=== PATIENT | female | born 1980 | race Caucasian/White ===

== ENCOUNTER 2018-11-29 11:58 | Emergency (ER) | payer SELFPAY ==
--- NOTE | 2018-11-29 12:32 | ER Document Report ---
HPI - HPI Time Seen by Provider: 11/29/18 12:23 Onset: Last week Onset/Duration: Persistent Quality of pain: Achy Severity: Mild Pain Level: 2 Context: This 38-year-old female presents emergency department with complaints of right ankle pain. Reports she fell down a couple brick steps last week. She reports ankle still hurts. She reports tingling in her toes when she walks. Denies other symptoms such as fever vomiting. Denies past medical history of injury to the ankle. Associated Symptoms: None Exacerbated by: Walking Relieved by: Denies Similar symptoms previously: No Recently seen / treated by doctor: No - REPRODUCTIVE Reproductive: DENIES: : Past Medical History - General Information source: Patient Last Menstrual Period: october - Social History Smoking Status: Current Every Day Smoker Cigarette use (# per day): Yes Frequency of alcohol use: None Drug Abuse: None Lives with: Family Family History: None Patient has suicidal ideation: No Patient has homicidal ideation: No - Medical History Medical History: Negative Surgical Hx: Negative Vertical Provider Document - CONSTITUTIONAL Agree With Documented VS: Yes Exam Limitations: No Limitations General Appearance: WD/WN, No Apparent Distress - winces with palpation to ankle - HEENT HEENT: Atraumatic, Normocephalic - NECK Neck: Supple - RESPIRATORY Respiratory: No Respiratory Distress - CARDIOVASCULAR Cardiovascular: Regular Rate - MUSCULOSKELETAL/EXTREMETIES Musculoskeletal/Extremeties: MAEW, FROM, Tender - Patient reports right ankle tender to palpate. No obvious deformity no swelling no erythema good pedal pulse good cap refill - NEURO Level of Consciousness: Awake, Alert, Appropriate Motor/Sensory: No Motor Deficit - DERM Integumentary: Warm, Dry Course - Re-evaluation Re-evalutation: 11/29/18 12:31 38-year-old female with complaints of right ankle pain for the past week with no obvious deformity no swelling no erythema. Patient has good pedal pulse and good cap refill. X-ray ordered. 11/29/18 13:02 X-ray negative. Patient was instructed on Motrin. Instructed to wear good supporting shoes rest ice and elevate to minimize pain. She verbalized un derstanding. Ankle X-Ray 11/29/18 12:27 IMPRESSION: NEGATIVE STUDY OF THE RIGHT ANKLE. NO RADIOGRAPHIC EVIDENCE OF ACUTE INJURY. - Vital Signs Vital signs: Temp Pulse Resp BP Pulse Ox 98.7 F 72 18 147/92 H 96 11/29/18 12:02 11/29/18 12:02 11/29/18 12:02 11/29/18 12:02 11/29/18 12:02 Discharge - Discharge Clinical Impression: Right ankle pain Qualifiers: Chronicity: acute Qualified Code(s): M25.571 - Pain in right ankle and joints of right foot Condition: Stable Disposition: HOME, SELF-CARE Instructions: Use of Kxel-Veg-Cfjjihc Ibuprofen ([facility]), Ice & Elevation ([facility]) Additional Instructions: *You have been evaluated for an ankle injury Your ankle x-ray was negative for a fracture. *Rest/Ice/Elevate your ankle *Wear good supporting shoes to protect your foot and ankle *Follow up with orthopedics in the next week for continued pain *Take ibuprofen as indicated for pain *Return to ED for worsening condition, changes, needs Monitor your blood pressure. Your blood pressure was elevated today. This may be because you were anxious, in pain or because you need medication. It is important to follow up with your primary care provider for full evaluation. Forms: Elevated Blood Pressure Referrals: RGOER MOSER MD [Primary Care Provider] - Follow up in 1 week
--- NOTE | 2018-11-29 12:49 | RADIOLOGY REPORT (SQ) ---
EXAM DESCRIPTION: ANKLE RIGHT COMPLETE COMPLETED DATE/TIME: 11/29/2018 12:40 pm REASON FOR STUDY: ankle pain COMPARISON: None. NUMBER OF VIEWS: Three views. TECHNIQUE: AP, lateral, and oblique radiographic images acquired of the right ankle. LIMITATIONS: None. FINDINGS: MINERALIZATION: Normal. BONES: No acute fracture or dislocation. No worrisome bone lesions. JOINTS: No effusions. SOFT TISSUES: No soft tissue swelling. No foreign body. OTHER: No other significant finding. IMPRESSION: NEGATIVE STUDY OF THE RIGHT ANKLE. NO RADIOGRAPHIC EVIDENCE OF ACUTE INJURY. TECHNICAL DOCUMENTATION: JOB ID: [id number] [employer]- All Rights Reserved Reading location - IP/workstation name: [email or web address]
[2018-11-29 13:34] VITALS: BP 105/68
== END 2018-11-29 13:44 | disposition home or self-care (01) ==
LOC: ER 11:58
DX: M25.571 Pain in right ankle and joints of right foot (principal); F17.210 Nicotine dependence, cigarettes, uncomplicated
CPT/HCPCS: 99283

== ENCOUNTER → 2019-01-02 | Outpatient (CLI) | payer OTHER ==
[2019-01-02 08:33] LABS: ABSOLUTE BASOPHILS # (AUTO) 0.1 10^3/uL (0.0-0.2); ABSOLUTE EOSINOPHILS # (AUTO) 0.3 10^3/uL (0.0-0.6); ABSOLUTE LYMPHOCYTES (AUTO) 3.4 10^3/uL (0.5-4.7); ABSOLUTE MONOCYTES (AUTO) 0.8 10^3/uL (0.1-1.4); ABSOLUTE NEUT (AUTO) 2.4 10^3/uL (1.7-8.2); EOSINOPHILS % (AUTO) 3.8 % (0-6); HEMATOCRIT 36.4 % (36.0-47.0); HEMOGLOBIN 11.9 g/dL (12.0-15.5); LYMPHOCYTES % (AUTO) 49.3 % (13-45); MEAN CORPUSCULAR HEMOGLOBIN 25.9 pg (27.0-33.4); MEAN CORPUSCULAR HGB CONC 32.8 g/dL (32.0-36.0); MEAN CORPUSCULAR VOLUME 79 fl (80-97); MONOCYTES % (AUTO) 11.1 % (3-13); PLATELET COUNT 238 10^3/uL (150-450); RED CELL DISTRIBUTION WIDTH 15.6 % (11.5-14.0); SEGMENTED NEUTROPHILS % (AUTO) 34.8 % (42-78); TOTAL CELLS COUNTED % (AUTO) 100 %; WHITE BLOOD COUNT 6.9 10^3/uL (4.0-10.5)
[2019-01-02 08:47] LABS: APPEARANCE,URINE SLIGHTLY-CLOUDY; BILIRUBIN,URINE NEGATIVE (NEGATIVE); COLOR,URINE YELLOW; GLUCOSE, URINE NEGATIVE (NEGATIVE); KETONES,URINE NEGATIVE (NEGATIVE); LEUKOCYTE ESTERASE,URINE NEGATIVE (NEGATIVE); NITRITE,URINE NEGATIVE (NEGATIVE); PROTEIN,URINE NEGATIVE (NEGATIVE); URINE SPECIFIC GRAVITY 1.024; UROBILINOGEN,URINE NEGATIVE mg/dL (<2.0)
[2019-01-02 08:56] LABS: ALBUMIN 3.8 g/dL (3.5-5.0); ALKALINE PHOSPHATASE 80 U/L (38-126); ANION GAP 6 (5-19); ASPARTATE AMINO TRANSFERASE 21 U/L (14-36); BILIRUBIN,DIRECT 0.1 mg/dL (0.0-0.4); BILIRUBIN,TOTAL 0.2 mg/dL (0.2-1.3); BLOOD UREA NITROGEN 12 mg/dL (7-20); CALCIUM 9.1 mg/dL (8.4-10.2); CARBON DIOXIDE 25 mmol/L (22-30); CHLORIDE 106 mmol/L (98-107); CHOLESTEROL 241.24 mg/dL (0-200); GLUCOSE 85 mg/dL (75-110); POTASSIUM 4.2 mmol/L (3.6-5.0); TRIGLYCERIDES 102 mg/dL (<150)
[2019-01-02 09:07] LABS: DIRECT LDL 163 mg/dL (<100)
== END ==
LOC: CCC 07:53
DX: R31.0 Gross hematuria (principal); Z83.71 Family history of colonic polyps
CPT/HCPCS: 36415; 80053; 80061; 81001; 83036; 84443; 85025

== ENCOUNTER 2019-01-27 23:02 | Emergency (ER) | payer OTHER ==
--- NOTE | 2019-01-27 23:25 | ER Document Report ---
ED Medical Screen (RME) - General Chief Complaint: Lower Abdominal Pain Stated Complaint: RIGHT OVARIAN PAIN Time Seen by Provider: 01/27/19 23:21 Primary Care Provider: YANNI ARCE [Primary Care Provider] - Follow up as needed Mode of Arrival: Ambulatory Information source: Patient Notes: Patient is an otherwise healthy 38-year-old female presenting to the emergency department chief complaint of right lower quadrant abdominal pain. Patient reports pain has been ongoing for several months worsening over the last few days. She denies any nausea, vomiting, diarrhea or fever. Denies any dysuria or urinary frequency. Patient does report a history of ovarian cysts, states this feels very similar. Exam: Tenderness to palpation of the right lower quadrant without guarding or rebound. I have greeted and performed a rapid initial assessment of this patient. A comprehensive ED assessment and evaluation of the patient, analysis of test results and completion of the medical decision making process will be conducted by additional ED providers. I have specifically instructed the patient or family members with the patient to immediately return to any nursing staff should anything change in the patient's condition or with their chief complaint. This medical record was dictated with voice recognizing software. There may be grammatical, syntax errors that are unintended. TRAVEL OUTSIDE OF THE [place] IN LAST 30 DAYS: No - Related Data Allergies/Adverse Reactions: No Known Allergies Allergy (Unverified 11/29/18 12:00) Past Medical History - Social History Chew tobacco use (# tins/day): No Frequency of alcohol use: None Drug Abuse: None Renal/ Medical History: Denies: Hx Peritoneal Dialysis Physical Exam - Vital signs Vitals: Temp Pulse Resp BP Pulse Ox 98.7 F 85 21 H 145/93 H 98 01/27/19 23:07 01/27/19 23:07 01/27/19 23:07 01/27/19 23:07 01/27/19 23:07 Course - Vital Signs Vital signs: Temp Pulse Resp BP Pulse Ox 98.7 F 85 21 H 145/93 H 98 01/27/19 23:07 01/27/19 23:07 01/27/19 23:07 01/27/19 23:07 01/27/19 23:07 Doctor's Discharge - Discharge Referrals: YANNI ARCE [Primary Care Provider] - Follow up as needed
[2019-01-28 00:07] LABS: ABSOLUTE BASOPHILS # (AUTO) 0.1 10^3/uL (0.0-0.2); ABSOLUTE EOSINOPHILS # (AUTO) 0.1 10^3/uL (0.0-0.6); ABSOLUTE LYMPHOCYTES (AUTO) 2.9 10^3/uL (0.5-4.7); ABSOLUTE MONOCYTES (AUTO) 0.8 10^3/uL (0.1-1.4); ABSOLUTE NEUT (AUTO) 6.2 10^3/uL (1.7-8.2); BASOPHILS % (AUTO) 0.8 % (0-2); EOSINOPHILS % (AUTO) 1.1 % (0-6); HEMATOCRIT 36.9 % (36.0-47.0); HEMOGLOBIN 12.5 g/dL (12.0-15.5); MEAN CORPUSCULAR HEMOGLOBIN 27.1 pg (27.0-33.4); MEAN CORPUSCULAR HGB CONC 33.9 g/dL (32.0-36.0); MEAN CORPUSCULAR VOLUME 80 fl (80-97); MONOCYTES % (AUTO) 7.8 % (3-13); PLATELET COUNT 291 10^3/uL (150-450); RED BLOOD COUNT 4.62 10^6/uL (3.72-5.28); SEGMENTED NEUTROPHILS % (AUTO) 61.3 % (42-78); TOTAL CELLS COUNTED % (AUTO) 100 %; WHITE BLOOD COUNT 10.2 10^3/uL (4.0-10.5)
[2019-01-28 00:12] LABS: ALBUMIN 4.1 g/dL (3.5-5.0); ALKALINE PHOSPHATASE 88 U/L (38-126); ANION GAP 9 (5-19); ASPARTATE AMINO TRANSFERASE 21 U/L (14-36); BILIRUBIN,DIRECT 0.2 mg/dL (0.0-0.4); BILIRUBIN,TOTAL 0.4 mg/dL (0.2-1.3); BLOOD UREA NITROGEN 18 mg/dL (7-20); CALCIUM 9.5 mg/dL (8.4-10.2); CARBON DIOXIDE 24 mmol/L (22-30); CHLORIDE 106 mmol/L (98-107); GLUCOSE 129 mg/dL (75-110); POTASSIUM 3.5 mmol/L (3.6-5.0); TOTAL PROTEIN 7.4 g/dL (6.3-8.2)
--- NOTE | 2019-01-28 01:09 | RADIOLOGY REPORT (SQ) ---
US PELVIS EXAM DATE: 01/27/2019 11:26 PM SANITARY INSPECTOR HISTORY: Right lower quadrant pain. COMPARISON: None. TECHNIQUE: Grayscale, color Doppler, and spectral Doppler ultrasound images of the pelvis were obtained. FINDINGS: The uterus is anteverted and measures 9.8 x 5.4 x 5.9 cm. The endometrium is 1.2 cm in thickness. The cervix is 3 cm in length. Both ovaries are normal in size and contain normal follicles, with the right ovary measuring 3.4 cm, and the left ovary measuring 3.0 cm. Normal color Doppler blood flow is seen in both ovaries. IMPRESSION: Normal pelvic ultrasound.
--- NOTE | 2019-01-28 02:30 | ER Document Report ---
ED General - General Chief Complaint: Lower Abdominal Pain Stated Complaint: RIGHT OVARIAN PAIN Time Seen by Provider: 01/27/19 23:21 Primary Care Provider: [facility] [Primary Care Provider] - Follow up as needed DESIRAE LOAIZA MD [NO LOCAL MD] - Follow up as needed Mode of Arrival: Ambulatory Notes: 38 year old female presents to the ED complaining of right-sided pelvic and low er abdominal pain that is been going on since September but was slightly increased today compared to usual. She thinks it may have been because she worked a 12- hour day but she is uncertain. Patient also states that she has had blood in her urine since September that she can see looking in the toilet since September. Denies any vaginal bleeding or vaginal discharge. Denies dyspareunia. Denies dysuria or frequency. States that she was previously diagnosed with urinary tract infection and had to be hospitalized [place] another [place]. Recently moved here from [place]. Has not seen a urologist for hematuria. TRAVEL OUTSIDE OF THE [place] IN LAST 30 DAYS: No - Related Data Allergies/Adverse Reactions: No Known Allergies Allergy (Unverified 11/29/18 12:00) Past Medical History - General Information source: Patient - Social History Smoking Status: Current Every Day Smoker Chew tobacco use (# tins/day): No Frequency of alcohol use: None Drug Abuse: None Family History: None Patient has suicidal ideation: No Patient has homicidal ideation: No Renal/ Medical History: Denies: Hx Peritoneal Dialysis Review of Systems - Review of Systems Constitutional: No symptoms reported Gastrointestinal: See HPI Genitourinary: See HPI Female Genitourinary: See HPI -: Yes All other systems reviewed and negative Physical Exam - Vital signs Vitals: Temp Pulse Resp BP Pulse Ox 98.7 F 85 21 H 145/93 H 98 01/27/19 23:07 01/27/19 23:07 01/27/19 23:07 01/27/19 23:07 01/27/19 23:07 Interpretation: Hypertensive - Notes Notes: GENERAL: Alert, interacts well. No acute distress. HEAD: Normocephalic, atraumatic EYES: Pupils equal, round and reactive to light, extraocular movements intact. ENT: Oral mucosa moist, tongue midline. NECK: Full range of motion, supple, trachea midline. LUNGS: Clear to auscultation bilaterally, no wheezes, rales or rhonchi, no respiratory distress. HEART: Regular rate and rhythm, no murmurs, gallops, rubs. ABDOMEN: Soft, minimal right lower quadrant tenderness to palpation, no guarding, no rigidity, no rebounding, nondistended, bowel sounds present in all 4 quadrants. EXTREMITIES: Moves all 4 extremities spontaneously, no edema. No cyanosis. NEUROLOGICAL: Alert and oriented x3, normal speech. PSYCH: Normal mood, normal affect. SKIN: Warm, Dry, normal turgor, no rashes or lesions noted. Long false nails that are filed to a point. Course - Re-evaluation Re-evalutation: 01/28/19 02:30 CBC unremarkable, CMP unremarkable transvaginal ultrasound unremarkable, no signs of free fluid or ovarian cyst. No evidence of torsion. Given that this pain is been going on since August and her white blood cell count and temperature normal it is highly unlikely that this is appendicitis, patient also has minimal right lower quadrant tenderness palpation. I am awaiting her urinalysis. 01/28/19 02:56 Urinalysis shows small blood, 8 RBCs, it was slightly cloudy but not red in appearance, test is negative. Patient will follow-up as an outpatient to further investigate why she continues to have hematuria. Discharged home. - Vital Signs Vital signs: Temp Pulse Resp BP Pulse Ox 98.7 F 85 21 H 145/93 H 98 01/27/19 23:07 01/27/19 23:07 01/27/19 23:07 01/27/19 23:07 01/27/19 23:07 - Laboratory Result Diagrams: 01/27/19 23:40 01/27/19 23:40 Laboratory results interpreted by me: 01/27/19 01/27/19 01/28/19 23:40 23:40 02:31 RDW 16.0 H Potassium 3.5 L Glucose 129 H Urine Blood SMALL H Urine Urobilinogen 2.0 H Discharge - Discharge Clinical Impression: Abdominal pain, chronic, right lower quadrant Condition: Stable Disposition: HOME, SELF-CARE Additional Instructions: Today we did not find any cyst on your ovaries. It is possible that you had a cyst that ruptured and that was causing this pain. I am concerned that you have been having fairly constant lower abdominal pain since August. It is important that she continue to follow-up with your primary care physician and possibly a certified nurse practitioner or technical account executive as an outpatient. I am also concerned that you tell me that you have been able to see blood in your urine on an almost daily basis since September. It is very important that you follow-up with urologist as an outpatient for this. I have included Dr. Loaiza's contact information so you can try and arrange a follow-up appointment with him or somebody from his office. Your urinalysis today showed 8 red blood cells. I am surprised you are able to see blood in your urine as we had to use a microscope to see it. Your urine was not red today. Please return for pain when you urinate, vaginal pain, vaginal discharge, fevers, worsening abdominal pain or any new or concerning symptoms. Referrals: [facility] [Primary Care Provider] - Follow up as needed DESIRAE LOAIZA MD [NO LOCAL MD] - Follow up as needed
[2019-01-28 02:46] LABS: APPEARANCE,URINE SLIGHTLY-CLOUDY; BILIRUBIN,URINE NEGATIVE (NEGATIVE); COLOR,URINE YELLOW; GLUCOSE, URINE NEGATIVE (NEGATIVE); KETONES,URINE NEGATIVE (NEGATIVE); PROTEIN,URINE NEGATIVE (NEGATIVE)
[2019-01-28 03:09] VITALS: BP 142/78
== END 2019-01-28 03:06 | disposition home or self-care (01) ==
LOC: ER 23:02
DX: R10.31 Right lower quadrant pain (principal); G89.29 Other chronic pain; R10.2 Pelvic and perineal pain; R31.9 Hematuria, unspecified; R10.813 Right lower quadrant abdominal tenderness; F17.200 Nicotine dependence, unspecified, uncomplicated; Z87.440 Personal history of urinary (tract) infections
CPT/HCPCS: 36415; 76830; 80053; 81001; 81025; 85025; 93976

== ENCOUNTER → 2019-02-06 | Outpatient (CLI) | payer OTHER ==
[2019-02-06 10:06] LABS: ABSOLUTE RETICS # 0.074 10^6/uL (0.028-0.122); RETICULOCYTE COUNT (AUTO) 1.59 % (0.66-2.85)
[2019-02-06 10:25] LABS: IRON(TIBC) 184.3 ug/dL (37-170)
[2019-02-07 16:36] LABS: HGB A2 1.8 % (1.8-3.2); HGB SOLUBILITY RESULT Negative (Negative)
== END ==
LOC: CCC 09:00
DX: D50.9 Iron deficiency anemia, unspecified (principal)
CPT/HCPCS: 36415; 82728; 83020; 83540; 83550; 85045

== ENCOUNTER 2019-05-07 16:26 | Emergency (ER) | payer OTHER ==
[2019-05-07] MEDS ORDERED: METOCLOPRAMIDE HCL INJ/PF 10 MG/2 ML SDV IV ONE (18:12)
[2019-05-07] MEDS ORDERED: KETOROLAC TROMETHAMINE INJ/PF 30 MG/1 ML SDV IV ONE (18:12)
[2019-05-07] MEDS ORDERED: DIPHENHYDRAMINE HCL 50 MG/ML VIAL IV ONE (18:12)
--- NOTE | 2019-05-07 18:16 | ER Document Report ---
ED Medical Screen (RME) - General Chief Complaint: Chest Congestion Stated Complaint: MUSCLE PAIN,HEADACHE,RIB AREA PAIN Time Seen by Provider: 05/07/19 18:04 Primary Care Provider: YANNI ARCE [Primary Care Provider] - Follow up as needed Notes: Patient is a 38-year-old female who presents emergency department with a chief complaint of headache and body aches. Patient reports she used to get headaches frequently but was never diagnosed with migraines. Patient reports that she is currently having a generalized headache. Patient reports taking Tylenol and ibuprofen without much relief. States that headaches been present for about 1 week as well as the muscle pain. Patient reports 3 days ago developing right lung pain and right chest wall pain. Patient denies cough. Patient also complains of right groin pain. Patient also reports rectal pain that started about 1 week ago as well. Patient denies rectal bleeding or blood in stool. TRAVEL OUTSIDE OF THE [place] IN LAST 30 DAYS: No - Related Data Allergies/Adverse Reactions: No Known Allergies Allergy (Verified 05/07/19 18:05) Home Medications: denies Past Medical History - Social History Chew tobacco use (# tins/day): No Frequency of alcohol use: None Drug Abuse: None Renal/ Medical History: Denies: Hx Peritoneal Dialysis Physical Exam - Vital signs Vitals: Temp Pulse Resp BP Pulse Ox 98.8 F 78 16 122/84 98 05/07/19 16:37 05/07/19 16:37 05/07/19 16:37 05/07/19 16:37 05/07/19 16:37 - Respiratory Respiratory status: No respiratory distress Chest status: Nontender Breath sounds: Normal Chest palpation: Normal Course - Re-evaluation Re-evalutation: 05/07/19 18:15 I have greeted and performed a rapid initial assessment of this patient. A comprehensive ED assessment and evaluation of the patient, analysis of test results and completion of the medical decision making process will be conducted by additional ED providers. - Vital Signs Vital signs: Temp Pulse Resp BP Pulse Ox 98.8 F 78 16 122/84 98 05/07/19 16:37 05/07/19 16:37 05/07/19 16:37 05/07/19 16:37 05/07/19 16:37 Doctor's Discharge - Discharge Referrals: YANNI ARCE [Primary Care Provider] - Follow up as needed
--- NOTE | 2019-05-07 18:43 | RADIOLOGY REPORT (SQ) ---
EXAM DESCRIPTION: CHEST 2 VIEWS COMPLETED DATE/TIME: 05/07/2019 6:30 pm REASON FOR STUDY: "RIGHT LUNG PAIN" COMPARISON: None. EXAM PARAMETERS: NUMBER OF VIEWS: Two views. TECHNIQUE: PA and lateral views of the chest were obtained.. RADIATION DOSE: NA LIMITATIONS: none FINDINGS: LUNGS AND PLEURA: No consolidation, pleural effusion or pneumothorax. MEDIASTINUM AND HILAR STRUCTURES: No mediastinal or hilar contour abnormality. HEART AND VASCULAR STRUCTURES: The cardiac silhouette and pulmonary vasculature are within normal martin its. BONES: No acute findings. HARDWARE: None in the chest. OTHER: No other finding. IMPRESSION: No acute cardiopulmonary process. TECHNICAL DOCUMENTATION: JOB ID: [id number] 2010 [employer]- All Rights Reserved Reading location - IP/workstation name: [email or web address]
--- NOTE | 2019-05-07 18:50 | EKG REPORT ---
SEVERITY:- NORMAL ECG - SINUS RHYTHM : Confirmed by: Miriam Marquez 07-May-2019 18:48:34
[2019-05-07 19:16] LABS: ABSOLUTE BASOPHILS # (AUTO) 0.1 10^3/uL (0.0-0.2); ABSOLUTE MONOCYTES (AUTO) 0.7 10^3/uL (0.1-1.4); TOTAL CELLS COUNTED % (AUTO) 100 %
[2019-05-07 19:23] LABS: APPEARANCE,URINE SLIGHTLY-CLOUDY; BILIRUBIN,URINE NEGATIVE (NEGATIVE); COLOR,URINE YELLOW; GLUCOSE, URINE NEGATIVE (NEGATIVE); KETONES,URINE NEGATIVE (NEGATIVE); LEUKOCYTE ESTERASE,URINE NEGATIVE (NEGATIVE); NITRITE,URINE NEGATIVE (NEGATIVE); PROTEIN,URINE NEGATIVE (NEGATIVE); URINE SPECIFIC GRAVITY 1.018; UROBILINOGEN,URINE NEGATIVE mg/dL (<2.0)
[2019-05-07 19:24] LABS: ABSOLUTE EOSINOPHILS # (AUTO) 0.1 10^3/uL (0.0-0.6); ABSOLUTE LYMPHOCYTES (AUTO) 2.7 10^3/uL (0.5-4.7); ABSOLUTE NEUT (AUTO) 5.6 10^3/uL (1.7-8.2); BASOPHILS % (AUTO) 0.8 % (0-2); EOSINOPHILS % (AUTO) 1.3 % (0-6); HEMATOCRIT 38.1 % (36.0-47.0); LYMPHOCYTES % (AUTO) 29.3 % (13-45); MEAN CORPUSCULAR HEMOGLOBIN 27.3 pg (27.0-33.4); MEAN CORPUSCULAR HGB CONC 34.2 g/dL (32.0-36.0); MEAN CORPUSCULAR VOLUME 80 fl (80-97); MONOCYTES % (AUTO) 7.8 % (3-13); PLATELET COUNT 262 10^3/uL (150-450); RED BLOOD COUNT 4.78 10^6/uL (3.72-5.28); RED CELL DISTRIBUTION WIDTH 15.9 % (11.5-14.0); SEGMENTED NEUTROPHILS % (AUTO) 60.8 % (42-78); WHITE BLOOD COUNT 9.2 10^3/uL (4.0-10.5)
[2019-05-07 19:37] LABS: ALBUMIN 4.7 g/dL (3.5-5.0); ALKALINE PHOSPHATASE 84 U/L (38-126); ANION GAP 9 (5-19); ASPARTATE AMINO TRANSFERASE 29 U/L (14-36); BILIRUBIN,DIRECT 0.2 mg/dL (0.0-0.4); BILIRUBIN,TOTAL 0.4 mg/dL (0.2-1.3); BLOOD UREA NITROGEN 13 mg/dL (7-20); CALCIUM 9.6 mg/dL (8.4-10.2); CARBON DIOXIDE 26 mmol/L (22-30); CHLORIDE 104 mmol/L (98-107); GLUCOSE 83 mg/dL (75-110); POTASSIUM 4.2 mmol/L (3.6-5.0); TOTAL PROTEIN 8.3 g/dL (6.3-8.2)
[2019-05-07 19:40] LABS: A TYPE INFLUENZA AG NEGATIVE (NEGATIVE)
[2019-05-07 19:41] LABS: B INFLUENZA AG NEGATIVE (NEGATIVE)
[2019-05-07] MEDS ORDERED: IBUPROFEN 800 MG TABLET PO ONE (20:25)
--- NOTE | 2019-05-07 20:49 | ER Document Report ---
ED General - General Chief Complaint: Chest Congestion Stated Complaint: MUSCLE PAIN,HEADACHE,RIB AREA PAIN Time Seen by Provider: 05/07/19 18:04 Primary Care Provider: [facility] [Primary Care Provider] - Follow up as needed TRAVEL OUTSIDE OF THE [place] IN LAST 30 DAYS: No - HPI Onset: Other - 3 days Quality of pain: Achy Severity: Moderate Context: 38 year old female arrives with feeling bad for about 3 days. Family members treated for + influenza recently. She has had a nonproductive cough and myalgias rather diffusely. Unsure of fever. No chronic health problems. Current everyday smoker but has felt too sick to smoke recently. Trying over the counter tylenol cold and theraflu with out relief. Unable to work today. - Related Data Allergies/Adverse Reactions: No Known Allergies Allergy (Verified 05/07/19 18:05) Home Medications: denies Past Medical History - Social History Smoking Status: Never Smoker Chew tobacco use (# tins/day): No Frequency of alcohol use: None Drug Abuse: None Family History: None Patient has suicidal ideation: No Patient has homicidal ideation: No Renal/ Medical History: Denies: Hx Peritoneal Dialysis Review of Systems - Review of Systems Constitutional: No symptoms reported EENT: No symptoms reported Cardiovascular: See HPI, Chest pain Respiratory: See HPI, Cough Gastrointestinal: No symptoms reported Genitourinary: No symptoms reported Female Genitourinary: No symptoms reported Musculoskeletal: See HPI, Muscle pain Skin: No symptoms reported Hematologic/Lymphatic: No symptoms reported Neurological/Psychological: No symptoms reported Physical Exam - Vital signs Vitals: Temp Pulse Resp BP Pulse Ox 98.8 F 78 16 122/84 98 05/07/19 16:37 05/07/19 16:37 05/07/19 16:37 05/07/19 16:37 05/07/19 16:37 Interpretation: Normal - General General appearance: Appears well, Alert - HEENT Head: Normocephalic, Atraumatic Eyes: Normal Pupils: PERRL - Respiratory Respiratory status: No respiratory distress Chest status: Nontender Breath sounds: Normal Chest palpation: Normal - Cardiovascular Rhythm: Regular Heart sounds: Normal auscultation Murmur: No - Abdominal Inspection: Normal Distension: No distension Bowel sounds: Normal Tenderness: Nontender Organomegaly: No organomegaly - Back Back: Normal, Nontender - Extremities General upper extremity: Normal inspection, Nontender, Normal color, Normal ROM, Normal temperature General lower extremity: Normal inspection, Nontender, Normal color, Normal ROM, Normal temperature, Normal weight bearing. No: Meron's sign - Neurological Neuro grossly intact: Yes Cognition: Normal Orientation: AAOx4 [place] Coma Scale Eye Opening: Spontaneous [place] Coma Scale Verbal: Oriented [place] Coma Scale Motor: Obeys Commands José Luis Coma Scale Total: 15 Speech: Normal Motor strength normal: LUE, RUE, LLE, RLE Sensory: Normal - Psychological Associated symptoms: Normal affect, Normal mood - Skin Skin Temperature: Warm Skin Moisture: Dry Skin Color: Normal Course - Re-evaluation Re-evalutation: 05/07/19 20:51 MDM 38 year old wiht cough sore in muscles and chest with this. Close contacts recently with influenza. Discussed rest, medicines and follow up as well as return precautions and she expressed understanding. - Vital Signs Vital signs: Temp Pulse Resp BP Pulse Ox 98.8 F 78 16 122/84 98 05/07/19 16:37 05/07/19 16:37 05/07/19 16:37 05/07/19 16:37 05/07/19 16:37 - Laboratory Result Diagrams: 05/07/19 18:51 05/07/19 18:51 Laboratory results interpreted by me: 05/07/19 05/07/19 18:51 18:51 RDW 15.9 H Total Protein 8.3 H - Diagnostic Test Radiology reviewed: Reports reviewed - NSR Nl axis [address] elevation or depression my interpretation. - EKG Interpretation by Me EKG shows normal: Sinus rhythm Rate: Normal - NSR NL [place] [address] elevation or depression my interpretation Discharge - Discharge Clinical Impression: Bronchitis, Pleurisy Condition: Good Disposition: HOME, SELF-CARE Instructions: Cough Suppressant & Expectorant Medications, Bronchitis ([facility]) Additional Instructions: Rest, plenty of fluids. Please return here for any problems or any concerns. Prescriptions: Benzonatate [Tessalon Perles 100 mg Capsule] 100 mg PO Q8HP PRN #30 capsule PRN Reason: Fluconazole [Diflucan] 100 mg PO ONCE PRN #1 tablet PRN Reason: Fluconazole [Diflucan] 50 mg PO ONCE PRN #1 tablet PRN Reason: Azithromycin [Zithromax Tri-Finn] 500 mg PO DAILY #1 pkg Forms: Smoking Cessation Education Referrals: [facility] [Primary Care Provider] - Follow up as needed
[2019-05-07 21:37] VITALS: BP 132/79
== END 2019-05-07 21:37 | disposition home or self-care (01) ==
LOC: ER 16:26
DX: J40 Bronchitis, not specified as acute or chronic (principal); R09.1 Pleurisy; R68.89 Other general symptoms and signs; R51 Headache; M79.10 Myalgia, unspecified site
CPT/HCPCS: 36415; 71046; 80053; 81001; 81025; 85025; 87804; 93005; 93010; 99284

== ENCOUNTER 2019-05-30 16:09 | Emergency (ER) | payer SELFPAY ==
[2019-05-30] MEDS ORDERED: PREDNISONE 20 MG TABLET PO ONE (16:40)
[2019-05-30] MEDS ORDERED: IPRATROPIUM/ALBUTEROL 0.5-2.5 MG/3 ML AMPUL NEB ONE ×2 (16:40→17:56)
--- NOTE | 2019-05-30 17:02 | ER Document Report ---
ED Medical Screen (RME) - General Chief Complaint: Cough Stated Complaint: SHORTNESS OF BREATH Time Seen by Provider: 05/30/19 16:36 Primary Care Provider: YANNI ARCE [Primary Care Provider] - Follow up as needed Mode of Arrival: Ambulatory Information source: Patient Notes: 38-year-old female patient with recent bronchitis presents to the emergency dep artment chief complaint of cough and worsening shortness of breath. Patient reports running low-grade fevers at home. Exam: Rhonchi and scattered wheezes noted bilaterally. Mildly increased work of breathing. I have greeted and performed a rapid initial assessment of this patient. A comprehensive ED assessment and evaluation of the patient, analysis of test results and completion of the medical decision making process will be conducted by additional ED providers. I have specifically instructed the patient or family members with the patient to immediately return to any nursing staff shoul d anything change in the patient's condition or with their chief complaint. TRAVEL OUTSIDE OF THE [place] IN LAST 30 DAYS: No - Related Data Allergies/Adverse Reactions: No Known Allergies Allergy (Verified 05/07/19 18:05) Past Medical History Renal/ Medical History: Denies: Hx Peritoneal Dialysis Physical Exam - Vital signs Vitals: Temp Pulse Resp BP Pulse Ox 98.8 F 61 24 H 140/125 H 97 05/30/19 16:16 05/30/19 16:16 05/30/19 16:16 05/30/19 16:16 05/30/19 16:16 Course - Vital Signs Vital signs: Temp Pulse Resp BP Pulse Ox 98.8 F 61 24 H 145/108 H 97 05/30/19 16:16 05/30/19 16:16 05/30/19 16:16 05/30/19 16:41 05/30/19 16:16 Doctor's Discharge - Discharge Referrals: YANNI ARCE [Primary Care Provider] - Follow up as needed
--- NOTE | 2019-05-30 17:15 | RADIOLOGY REPORT (SQ) ---
EXAM DESCRIPTION: CHEST 2 VIEWS COMPLETED DATE/TIME: 05/30/2019 4:52 pm REASON FOR STUDY: cough/fever COMPARISON: 05/07/2019 EXAM PARAMETERS: NUMBER OF VIEWS: two views TECHNIQUE: Digital Frontal and Lateral radiographic views of the chest acquired. RADIATION DOSE: NA LIMITATIONS: none FINDINGS: LUNGS AND PLEURA: No opacities, masses or pneumothorax. No pleural effusion. MEDIASTINUM AND HILAR STRUCTURES: No masses or contour abnormalities. HEART AND VASCULAR STRUCTURES: Heart normal size. No evidence for failure. BONES: No acute findings. HARDWARE: None in the chest. OTHER: No other significant finding. IMPRESSION: NO ACUTE RADIOGRAPHIC FINDING IN THE CHEST. TECHNICAL DOCUMENTATION: JOB ID: [id number] 2010 [employer]- All Rights Reserved Reading location - IP/workstation name: [email or web address]
[2019-05-30] MEDS ORDERED: GUAIFENESIN/CODEINE PHOS 100-10 MG/ 5 ML UDC PO ONE (17:28)
--- NOTE | 2019-05-30 17:52 | ER Document Report ---
ED Respiratory Problem - General Chief Complaint: Cough Stated Complaint: SHORTNESS OF BREATH Time Seen by Provider: 05/30/19 16:36 Primary Care Provider: [facility] [Primary Care Provider] - Follow up as needed Mode of Arrival: Ambulatory Notes: CHIEF COMPLAINT: Cough for for 5 days, shortness of breath HPI: 38-year-old female who is otherwise healthy presenting for upper res piratory symptoms over the last 5 days. She has had a cough and developed shortness of breath over the last 2 days. Patient states that she went to an urgent care was diagnosed with bronchitis placed on 3 days of antibiotics which did not seem to help. Has not had fever in the last 2 days. No asthma history. ROS: See HPI - all other systems were reviewed and are otherwise negative Constitutional: no fever Eyes: no drainage, no blurred vision ENT: no runny nose, no sore throat Cardiovascular: no chest pain Resp: + SOB, + cough GI: no vomiting, no diarrhea, no abdominal pain : no dysuria Integumentary: no rash Allergy: no hives Musculoskeletal: no extremity pain or swelling Neurological: no numbness/tingling, no weakness MEDICATIONS: I agree with the patient medications as charted by the RN. ALLERGIES: I agree with the allergies as charted by the RN. PAST MEDICAL HISTORY/PAST SURGICAL HISTORY: Reviewed and agree as charted by RN. SOCIAL HISTORY: Reviewed and agree as charted by RN. FAMILY HISTORY: No significant familial comorbid conditions directly related to patient complaint EXAM: Reviewed vital signs as charted by RN. CONSTITUTIONAL: Alert and oriented and responds appropriately to questions. Well-appearing; well-nourished HEAD: Normocephalic; atraumatic EYES: PERRL; Conjunctivae clear, sclerae non-icteric ENT: normal nose; no rhinorrhea; moist mucous membranes; pharynx without lesions noted, no uvula edema or deviation, no tonsillar hypertrophy, phonation normal NECK: Supple without meningismus; non-tender; no cervical lymphadenopathy, no masses CARD: RRR; no murmurs, no clicks, no rubs, no gallops; symmetric distal pulses RESP: Normal chest excursion without splinting, mild tachypnea; breath sounds with expiratory wheezing in all lung dubois ezes, no rhonchi, no rales, pulse oximetry 97% on room air not hypoxic ABD/GI: Normal bowel sounds; non-distended; soft, non-tender, no rebound, no guarding; no palpable organomegaly or masses. BACK: The back appears normal and is non-tender to palpation, there is no CVA tenderness EXT: Normal ROM in all joints; non-tender to palpation; no cyanosis, no effusions, no edema SKIN: Normal color for age and race; warm; dry; good turgor; no acute lesions noted NEURO: Moves all extremities equally; Motor and sensory function intact PSYCH: The patient's mood and manner are appropriate. Grooming and personal hygiene are appropriate. MDM: 38-year-old female with acute bronchospasm. Chest x-ray ordered via triage did not show evidence of infiltrate or pneumonia. I evaluated the patient after 1 breathing treatment, still with coarse expiratory wheezing will give a continuous nebulized treatment 9 mg. Plan to reassess. She has had steroids already. TRAVEL OUTSIDE OF THE [place] IN LAST 30 DAYS: No - Related Data Allergies/Adverse Reactions: No Known Allergies Allergy (Verified 05/07/19 18:05) Past Medical History - General Information source: Patient - Social History Smoking Status: Current Every Day Smoker Family History: None Patient has suicidal ideation: No Patient has homicidal ideation: No Renal/ Medical History: Denies: Hx Peritoneal Dialysis Physical Exam - Vital signs Vitals: Temp Pulse Resp BP Pulse Ox 98.8 F 61 24 H 140/125 H 97 05/30/19 16:16 05/30/19 16:16 05/30/19 16:16 05/30/19 16:16 05/30/19 16:16 Course - Re-evaluation Re-evalutation: 05/30/19 19:12 Patient feels much better after continuous neb, still with slight expiratory wheezing on the right but clear on the left. She wishes to go home. Will continue on albuterol, steroids, follow-up PCP return instructions given - Vital Signs Vital signs: Temp Pulse Resp BP Pulse Ox 98.8 F 61 24 H 145/108 H 97 05/30/19 16:16 05/30/19 16:16 05/30/19 16:16 05/30/19 16:41 05/30/19 16:16 Discharge - Discharge Clinical Impression: Acute bronchospasm due to viral infection Condition: Stable Disposition: HOME, SELF-CARE Additional Instructions: Use the albuterol inhaler 2 puffs every 4 hours for the next 3 to 4 days then as needed. Take the steroids as prescribed. Follow-up with your primary care provider in 3 to 4 days for reevaluation. If you have any worsening respiratory difficulty return for reevaluation Prescriptions: Prednisone [Deltasone 20 mg Tablet] 2 tab PO DAILY 5 Days #14 tablet Albuterol Sulfate [Proair HFA Inhalation Aerosol 8.5 gm MDI] 2 puff IH Q4H PRN #1 mdi PRN Reason: Referrals: [facility] [Primary Care Provider] - Follow up as needed
[2019-05-30 19:36] VITALS: BP 126/77
== END 2019-05-30 19:32 | disposition home or self-care (01) ==
LOC: ER 16:09
DX: B34.9 Viral infection, unspecified (principal); J98.01 Acute bronchospasm; R05 Cough; R06.02 Shortness of breath; R06.2 Wheezing; F17.200 Nicotine dependence, unspecified, uncomplicated
CPT/HCPCS: 94640 ×2; 99284; 71046; J7512; J7620

== ENCOUNTER 2019-08-28 20:26 | Emergency (ER) | payer SELFPAY ==
[2019-08-28] MEDS ORDERED: PENICILLIN G BENZATHINE 1.2 MILLION UNIT/2 ML DISP.SYRIN IM ONE (21:15)
--- NOTE | 2019-08-28 21:18 | ER Document Report ---
ED General - General Chief Complaint: Sore Throat Stated Complaint: SORE THROAT Time Seen by Provider: 08/28/19 20:47 Primary Care Provider: [facility] [Primary Care Provider] - Follow up as needed Mode of Arrival: Ambulatory Information source: Patient TRAVEL OUTSIDE OF THE [place] IN LAST 30 DAYS: No - HPI Onset: Other - over the last 1-2 weeks Onset/Duration: Gradual Quality of pain: Burning, Throbbing Severity: Moderate Pain Level: 2 Associated symptoms: Other - painful swallowing Exacerbated by: Other - swallowing Relieved by: Denies Similar symptoms previously: No Recently seen / treated by doctor: No Notes: 39 year old female with no significant PMH here in the ER for evaluation of a sore throat, low grade fevers, painful swollen lymph nodes. The patient's father lives with her and he was recently diagnosed with Strep Throat. The patient says she has had her symptoms for 1-2 weeks now. - Related Data Allergies/Adverse Reactions: No Known Allergies Allergy (Verified 05/07/19 18:05) Past Medical History - General Information source: Patient - Social History Smoking Status: Current Every Day Smoker Frequency of alcohol use: None Drug Abuse: None Lives with: Family Family History: Reviewed & Not Pertinent Patient has suicidal ideation: No Patient has homicidal ideation: No Renal/ Medical History: Denies: Hx Peritoneal Dialysis Past Surgical History: Reports: Hx Section Review of Systems - Review of Systems Constitutional: Fever EENT: Ear pain - left sided, Throat pain Cardiovascular: No symptoms reported Respiratory: No symptoms reported Gastrointestinal: No symptoms reported Genitourinary: No symptoms reported Female Genitourinary: No symptoms reported Musculoskeletal: No symptoms reported Skin: No symptoms reported Hematologic/Lymphatic: No symptoms reported Neurological/Psychological: No symptoms reported -: Yes All other systems reviewed and negative Physical Exam - Vital signs Vitals: Temp Pulse Resp BP Pulse Ox 100.1 F 75 16 129/87 H 98 08/28/19 20:33 08/28/19 20:33 08/28/19 20:33 08/28/19 20:33 08/28/19 20:33 - Notes Notes: GENERAL: Well-appearing, well-nourished and in no acute distress. HEAD: Atraumatic, normocephalic. EYES: Pupils equal round and reactive to light, extraocular movements intact, sclera anicteric, conjunctiva are normal. ENT: TMs normal bilaterally, nares patent, oropharynx is erythematous. Tonsils with mild white exudates. Moist mucous membranes. NECK: Normal range of motion, supple without lymphadenopathy or JVD. LUNGS: Breath sounds clear to auscultation bilaterally and equal. No wheezes rales or rhonchi. HEART: Regular rate and rhythm without murmurs, rubs or gallops. ABDOMEN: Soft, nontender, normoactive bowel sounds. No guarding, no rebound. No masses appreciated. EXTREMITIES: Normal range of motion, no pitting or edema. No clubbing or cyano sis. NEUROLOGICAL: Cranial nerves II through XII grossly intact. Normal speech, normal gait. PSYCH: Normal mood, normal affect. SKIN: Warm, Dry, normal turgor, no rashes or lesions noted. Course - Re-evaluation Re-evalutation: 08/28/19 21:17 The patient has a known positive Strep Throat contact (her father) and she seems to clinically have Strep Throat on exam. Will therefore empirically treat the patient with IM Penicillin regardless of her Rapid Strep results. - Vital Signs Vital signs: Temp Pulse Resp BP Pulse Ox 100.1 F 75 16 129/87 H 98 08/28/19 20:53 08/28/19 20:33 08/28/19 20:33 08/28/19 20:33 08/28/19 20:33 Discharge - Discharge Clinical Impression: Pharyngitis Qualifiers: Pharyngitis/tonsillitis etiology: unspecified etiology Qualified Code(s): J02.9 - Acute pharyngitis, unspecified Condition: Stable Disposition: HOME, SELF-CARE Instructions: Strep Throat ([facility]), Sore Throat ([facility]) Additional Instructions: Use Tylenol and Motrin for throat pain and fevers. Drink plenty of fluids in the days to come. Follow up with your primary care doctor or one of the clinics listed in your discharge paperwork if symptoms persist over the next several days. You were treated in the ER with a Penicillin shot. Referrals: [facility] [Primary Care Provider] - Follow up as needed
[2019-08-28 22:19] VITALS: BP 150/86
== END 2019-08-28 22:25 | disposition home or self-care (01) ==
LOC: ER 20:26
DX: J02.9 Acute pharyngitis, unspecified (principal); R50.9 Fever, unspecified; R59.9 Enlarged lymph nodes, unspecified; F17.200 Nicotine dependence, unspecified, uncomplicated
CPT/HCPCS: 99283; 96372; 36415; 87070; 87880; J0561

== ENCOUNTER 2019-10-21 18:34 | Emergency (ER) | payer OTHER ==
[2019-10-21 18:47] VITALS: BP 129/94
--- NOTE | 2019-10-21 19:17 | ER Document Report ---
ED Medical Screen (RME) - General Chief Complaint: STD Exposure Stated Complaint: ABDOMINAL PAIN,VAGINAL ITCHING Time Seen by Provider: 10/21/19 19:15 Primary Care Provider: YANNI ARCE [Primary Care Provider] - Follow up as needed Notes: HPI: 39-year-old female presenting for vaginal discharge and vaginal irritation as well as pelvic pain over the last week. Patient states she normally gets bacterial vaginosis or yeast infections for 5 times a year. She did have unprotected sex several weeks ago and is unsure if she may now have an STD. She tried an [id number] yeast medication without resolution now has some pelvic pain as well as the vaginal irritation. Has not had fever nausea vomiting PHYSICAL EXAMINATION: exam deferred in triage mild tenderness over the suprapubic region and pelvic region on palpation of the abdomen limited exam in triage I have greeted and performed a rapid initial assessment of this patient. A comprehensive ED assessment and evaluation of the patient, analysis of test results and completion of medical decision making process will be conducted by an additional ED providers. TRAVEL OUTSIDE OF THE [place] IN LAST 30 DAYS: No - Related Data Allergies/Adverse Reactions: No Known Allergies Allergy (Verified 05/07/19 18:05) Past Medical History Renal/ Medical History: Denies: Hx Peritoneal Dialysis Past Surgical History: Reports: Hx Section Physical Exam - Vital signs Vitals: Temp Pulse Resp BP Pulse Ox 98.8 F 59 L 19 129/94 H 97 10/21/19 18:46 10/21/19 18:46 10/21/19 18:46 10/21/19 18:46 10/21/19 18:46 Course - Vital Signs Vital signs: Temp Pulse Resp BP Pulse Ox 98.8 F 59 L 19 129/94 H 97 10/21/19 18:46 10/21/19 18:46 10/21/19 18:46 10/21/19 18:46 10/21/19 18:46 Doctor's Discharge - Discharge Referrals: YANNI ARCE [Primary Care Provider] - Follow up as needed
[2019-10-21 19:44] LABS: APPEARANCE,URINE SLIGHTLY-CLOUDY; BILIRUBIN,URINE NEGATIVE (NEGATIVE); COLOR,URINE YELLOW; GLUCOSE, URINE NEGATIVE (NEGATIVE); KETONES,URINE NEGATIVE (NEGATIVE); LEUKOCYTE ESTERASE,URINE LARGE (NEGATIVE); NITRITE,URINE NEGATIVE (NEGATIVE); PROTEIN,URINE NEGATIVE (NEGATIVE); URINE SPECIFIC GRAVITY 1.015; UROBILINOGEN,URINE NEGATIVE mg/dL (<2.0)
--- NOTE | 2019-10-21 22:44 | ER Document Report ---
ED GI/ - General Chief Complaint: Abdominal Pain Stated Complaint: ABDOMINAL PAIN,VAGINAL ITCHING Time Seen by Provider: 10/21/19 19:15 Primary Care Provider: [facility] [Provider Group] - Follow up as needed [facility] [NO LOCAL MD] - Follow up as needed Notes: Patient is a 39-year-old female who presents emergency department with a chief complaint of vaginal discharge and vaginal itching. Patient states that she has had her symptoms for the past week. Patient does admit to having sexual intercourse without protection recently. Patient states that she has tried [id number] antifungal creams to help with her symptoms, but has had little relief. Patient states that she has history of bacterial vaginosis in the past. Denies any nausea, vomiting, or diarrhea. States that she does have some pelvic pain. Denies any upper abdominal pain. TRAVEL OUTSIDE OF THE [place] IN LAST 30 DAYS: No - Related Data Allergies/Adverse Reactions: No Known Allergies Allergy (Verified 05/07/19 18:05) Past Medical History - General Information source: Patient - Social History Smoking Status: Current Every Day Smoker Family History: Reviewed & Not Pertinent Renal/ Medical History: Denies: Hx Peritoneal Dialysis Past Surgical History: Reports: Hx Section Review of Systems - Review of Systems Notes: REVIEW OF SYSTEMS: CONSTITUTIONAL : Denies recent illness. Denies recent unintentional weight loss. Denies fever, chills, or sweats. EENT: Denies eye, ear, throat, or mouth pain, discharge, or symptoms. Denies nasal or sinus congestion. CARDIOVASCULAR: Denies chest pain. RESPIRATORY: Denies shortness of breath, cough, congestion, difficulty breat sergo, or wheezing. GASTROINTESTINAL: See HPI. GENITOURINARY: Denies difficulty urinating, burning, blood in urine, urgency or frequency. FEMALE GENITOURINARY: See HPI. MUSCULOSKELETAL: Denies neck and back pain. Denies joint pain or swelling. SKIN: Denies rash, itchiness, or lesions HEMATOLOGIC : Denies easy bruising or bleeding. LYMPHATIC: Denies swollen, painful, enlarged glands. NEUROLOGICAL: Denies no numbness or tingling denies weakness. Denies headache. Denies altered mental status. Denies alteration in speech. PSYCHIATRIC: Denies stress, anxiety, alteration in sleep patterns, or depression. All other systems reviewed and negative. Physical Exam - Vital signs Vitals: Temp Pulse Resp BP Pulse Ox 98.8 F 59 L 19 129/94 H 97 10/21/19 18:46 10/21/19 18:46 10/21/19 18:46 10/21/19 18:46 10/21/19 18:46 - Notes Notes: PHYSICAL EXAMINATION: GENERAL: Appears well, healthy, well-nourished, no acute distress. HEAD: Normocephalic, atraumatic. EYES: PERRL, conjunctiva normal, all extraocular movements intact, sclera nonicteric ENT: Moist mucous membranes. NECK: Supple, no noticeable swelling, redness, rash. Normal range of motion. LUNGS: Equal breath sounds bilaterally and clear to auscultation. No wheezes rales or rhonchi. CARDIOVASCULAR: S1-S2, regular rate, regular rhythm. Radial pulses 2+, normal. ABDOMEN: Normoactive bowel sounds. Soft, nontender, no guarding, no rebound tenderness, and no masses palpated. EXTREMITIES: Normal strength and range of motion, no pitting or edema. No cyanosis. NEUROLOGICAL: Moves all extremities upon command. Strength 5/5 in all extremities. PSYCH: Normal mood, normal affect. SKIN: Warm, dry. No rash, lesions, ulcerations noted. Normal skin turgor. WEATHERIZATION SPECIALIST: Cervical motion tenderness noted. No adnexal tenderness noted. Green/white cottage cheese looking discharge noted in vaginal canal. Course - Re-evaluation Re-evalutation: 10/21/19 22:45 Lakshmi, PCT at bedside. Cervical motion tenderness noted. No adnexal tenderness noted. Patient has green/white discharge noted on her pelvic exam. Wet mount, gonorrhea and chlamydia will be sent. 10/21/19 23:28 Wet mount shows 3+ epithelial, 3+ bacteria, and 3+ WBCs. Patient will again be treated for pelvic inflammatory disease. No yeast was shown. Patient is nontoxic in appearance. Vital signs are stable. Follow-up precautions were given. Verbal discharge instructions were given to the patient. They verbalized understanding. They are stable for discharge. - Vital Signs Vital signs: Temp Pulse Resp BP Pulse Ox 98.8 F 59 L 19 129/94 H 97 10/21/19 18:46 10/21/19 18:46 10/21/19 18:46 10/21/19 18:46 10/21/19 18:46 - Laboratory Laboratory results interpreted by me: 10/21/19 19:25 Urine Blood MODERATE H Ur Leukocyte Esterase LARGE H Discharge - Discharge Clinical Impression: Pelvic inflammatory disease Condition: Stable Disposition: HOME, SELF-CARE Additional Instructions: Your are being treated for pelvic inflammatory disease. You are being started on 2 different antibiotics and you need to take these until you finish them. Please return if you have worsening pain, persistent vomiting, spike a fever greater than 101F, or have any other symptoms that are concerning to you. Please follow closely with you primary care physician or your FORM BUILDER at your earliest ability. Prescriptions: Fluconazole [Diflucan 100 mg Tablet] 100 mg PO ASDIR #1 tablet Metronidazole [Flagyl 500 mg Tablet] 500 mg PO Q6H #28 tablet Doxycycline Hyclate [Vibramycin 100 mg Tablet] 100 mg PO BID #28 tablet Referrals: [facility] [NO LOCAL MD] - Follow up as needed [facility] [Provider Group] - Follow up as needed
[2019-10-21] MEDS ORDERED: CEFTRIAXONE INJ 1000 MG VIAL IM ONE (23:16)
[2019-10-21] MEDS ORDERED: AZITHROMYCIN 250 MG TABLET PO ONE (23:16)
[2019-10-21] MEDS ORDERED: LIDOCAINE 1% INJ-PF (10 MG/ML) 30 ML SDV INJ ONE (23:16)
[2019-10-21 23:24] LABS: BACTERIA (WET MOUNT) 3+ BACTERIA SEEN; EPITHELIALS (WET MOUNT) 3+ EPITHELIALS SEEN; RBCS (WET MOUNT) FEW RBCS SEEN; T.VAGINALIS (WET MOUNT) NO TRICHOMONAS SEEN; WBCS (WET MOUNT) 3+ WBCS SEEN; YEAST (WET MOUNT) NO YEAST SEEN
[2019-10-21] MEDS ORDERED: FLUCONAZOLE 100 MG TABLET PO ONE (23:33)
[2019-10-22 00:59] LABS: CHLAM PCR NOT DETECTED (NOT DETECT)
== END 2019-10-22 00:05 | disposition home or self-care (01) ==
LOC: ER 18:34
DX: N73.9 Female pelvic inflammatory disease, unspecified (principal); F17.200 Nicotine dependence, unspecified, uncomplicated
CPT/HCPCS: 99283; 96372; 87210; 81025; 81001; 87491; 87591; J3490; J0696

== ENCOUNTER 2019-10-25 16:42 | Emergency (ER) | payer OTHER | END 2019-10-25 17:45 | disposition left against medical advice (07) | LOC: ER 16:42 | DX: Z53.21 Procedure and treatment not carried out due to patient leaving prior to being seen by health care provider (principal) ==

== ENCOUNTER 2020-01-05 19:14 | Emergency (ER) | payer OTHER ==
[2020-01-05] MEDS ORDERED: ACETAMINOPHEN 325 MG TABLET PO ONE (19:23)
[2020-01-05] MEDS ORDERED: NORMAL SALINE 1000 ML 1,000 ML IV ONE (19:23)
--- NOTE | 2020-01-05 19:24 | ER Document Report ---
ED Medical Screen (RME) - General Chief Complaint: Abdominal Pain Stated Complaint: ABDOMINAL PAIN Time Seen by Provider: 01/05/20 19:16 Mode of Arrival: Ambulatory Information source: Patient Notes: 39-year-old female presented to ED for complaint of abdominal pain to the lower half of the abdomen. She states she did have a normal bowel movement today. She states she has had no nausea or vomiting. She states she has had blood in her urine for about a years. She states she has followed up with urology and they put a camera in her bladder and told her there was nothing there. She does have a history of asthma pneumonia migraines a cystoscopy wisdom tooth removal no surgery bilateral tubal ligation and a . She states she does smoke a pack a day does not drink or do any illicit drugs. She states her last menstrual period was 12/21/2019. I have greeted and performed a rapid initial assessment of this patient. A comprehensive ED assessment and evaluation of the patient, analysis of test results and completion of medical decision making process will be conducted by an additional ED providers. TRAVEL OUTSIDE OF THE [place] IN LAST 30 DAYS: No - Related Data Allergies/Adverse Reactions: No Known Allergies Allergy (Verified 05/07/19 18:05) Past Medical History Renal/ Medical History: Denies: Hx Peritoneal Dialysis Past Surgical History: Reports: Hx Section, Hx Tubal Ligation Physical Exam - Vital signs Vitals: Temp 98.6 F 01/05/20 19:22 Course - Vital Signs Vital signs: Temp Pulse Resp BP Pulse Ox 98.6 F 01/05/20 19:22
[2020-01-05 20:02] LABS: ABSOLUTE BASOPHILS # (AUTO) 0.1 10^3/uL (0.0-0.2); ABSOLUTE EOSINOPHILS # (AUTO) 0.2 10^3/uL (0.0-0.6); ABSOLUTE LYMPHOCYTES (AUTO) 2.6 10^3/uL (0.5-4.7); ABSOLUTE MONOCYTES (AUTO) 0.8 10^3/uL (0.1-1.4); ABSOLUTE NEUT (AUTO) 5.2 10^3/uL (1.7-8.2); BASOPHILS % (AUTO) 0.7 % (0-2); EOSINOPHILS % (AUTO) 2.1 % (0-6); HEMATOCRIT 33.9 % (36.0-47.0); HEMOGLOBIN 11.9 g/dL (12.0-15.5); LYMPHOCYTES % (AUTO) 29.1 % (13-45); MEAN CORPUSCULAR HEMOGLOBIN 27.8 pg (27.0-33.4); MEAN CORPUSCULAR HGB CONC 35.1 g/dL (32.0-36.0); MEAN CORPUSCULAR VOLUME 79 fl (80-97); MONOCYTES % (AUTO) 9.1 % (3-13); PLATELET COUNT 285 10^3/uL (150-450); RED BLOOD COUNT 4.28 10^6/uL (3.72-5.28); RED CELL DISTRIBUTION WIDTH 16.4 % (11.5-14.0); TOTAL CELLS COUNTED % (AUTO) 100 %; WHITE BLOOD COUNT 8.8 10^3/uL (4.0-10.5)
[2020-01-05 20:20] LABS: ALBUMIN 4.3 g/dL (3.5-5.0); ALKALINE PHOSPHATASE 85 U/L (38-126); ANION GAP 8 (5-19); ASPARTATE AMINO TRANSFERASE 20 U/L (14-36); BILIRUBIN,DIRECT 0.2 mg/dL (0.0-0.4); BILIRUBIN,TOTAL 0.2 mg/dL (0.2-1.3); BLOOD UREA NITROGEN 14 mg/dL (7-20); CALCIUM 9.5 mg/dL (8.4-10.2); CARBON DIOXIDE 24 mmol/L (22-30); CHLORIDE 107 mmol/L (98-107); GLUCOSE 80 mg/dL (75-110); POTASSIUM 4.3 mmol/L (3.6-5.0); TOTAL PROTEIN 7.3 g/dL (6.3-8.2)
[2020-01-05 20:32] LABS: APPEARANCE,URINE CLEAR; BILIRUBIN,URINE NEGATIVE (NEGATIVE); COLOR,URINE STRAW; GLUCOSE, URINE NEGATIVE (NEGATIVE); KETONES,URINE NEGATIVE (NEGATIVE); LEUKOCYTE ESTERASE,URINE NEGATIVE (NEGATIVE); NITRITE,URINE NEGATIVE (NEGATIVE); PROTEIN,URINE NEGATIVE (NEGATIVE); URINE SPECIFIC GRAVITY 1.006; UROBILINOGEN,URINE NEGATIVE mg/dL (<2.0)
[2020-01-05] MEDS ORDERED: KETOROLAC TROMETHAMINE INJ/PF 30 MG/1 ML SDV IV ONE (20:42)
--- NOTE | 2020-01-05 20:48 | ER Document Report ---
ED GI/ - General Chief Complaint: Abdominal Pain Stated Complaint: ABDOMINAL PAIN Time Seen by Provider: 01/05/20 19:16 Mode of Arrival: Ambulatory Information source: Patient Notes: 39-year-old female patient presenting to the emergency department lower abdominal pain, dysuria and abnormal vaginal discharge. Patient reports symptoms ongoing for the last few months. She states she came here about 2 months ago was treated for bacterial vaginosis however it never got better. She reports she has not had any nausea, vomiting, diarrhea, fever or chills. Denies any vaginal pain. TRAVEL OUTSIDE OF THE [place] IN LAST 30 DAYS: No - Related Data Allergies/Adverse Reactions: No Known Allergies Allergy (Verified 05/07/19 18:05) Past Medical History - General Information source: Patient - Social History Smoking Status: Current Every Day Smoker Chew tobacco use (# tins/day): No Frequency of alcohol use: None Drug Abuse: None Family History: Reviewed & Not Pertinent Patient has homicidal ideation: No - Medical History Medical History: Negative Renal/ Medical History: Denies: Hx Peritoneal Dialysis Past Surgical History: Reports: Hx Section, Hx Tubal Ligation Review of Systems - Review of Systems Gastrointestinal: Abdominal pain Genitourinary: Dysuria Female Genitourinary: Vaginal discharge -: Yes All other systems reviewed and negative Physical Exam - Vital signs Vitals: Temp 98.6 F 01/05/20 19:22 - Notes Notes: PHYSICAL EXAMINATION: GENERAL: Well-appearing, well-nourished and in no acute distress. HEAD: Atraumatic, normocephalic. EYES: Pupils equal round and reactive to light, extraocular movements intact, conjunctiva are normal. ENT: Nares patent, oropharynx clear without exudates. Moist mucous membranes. NECK: Normal range of motion, supple without lymphadenopathy LUNGS: Breath sounds clear to auscultation bilaterally and equal. No wheezes rales or rhonchi. HEART: Regular rate and rhythm without murmurs ABDOMEN: Soft, nontender, nondistended abdomen. No guarding, no rebound. No masses appreciated. Female : Thin white vaginal discharge, no cervical motion or adnexal tenderness. Normal external genitalia. Chaperoned by RN. Musculoskeletal: Normal range of motion, no pitting or edema. No cyanosis. NEUROLOGICAL: Cranial nerves grossly intact. Normal speech, normal gait. Normal sensory, motor exams PSYCH: Normal mood, normal affect. SKIN: Warm, Dry, normal turgor, no rashes or lesions noted. Course - Re-evaluation Re-evalutation: Exam and work-up today consistent with bacterial vaginosis. Patient has failed outpatient oral Flagyl. We will do Flagyl suppositories and oral clindamycin. Patient agreeable to this plan. 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 - Vital Signs Vital signs: Temp Pulse Resp BP Pulse Ox 98.2 F 82 16 125/80 98 01/05/20 23:49 01/05/20 23:49 01/05/20 23:49 01/05/20 23:49 01/05/20 23:49 - Laboratory Result Diagrams: 01/05/20 19:44 01/05/20 19:44 Laboratory results interpreted by me: 01/05/20 01/05/20 19:44 20:18 Hgb 11.9 L Hct 33.9 L MCV 79 L RDW 16.4 H Urine Blood SMALL H Discharge - Discharge Clinical Impression: Bacterial vaginosis Condition: Stable Disposition: HOME, SELF-CARE Additional Instructions: You have an overgrowth of natural vaginal bacteria, called bacterial vaginosis. You are being treated with an antibiotic called clindamycin since you have alr monica failed treatment on Flagyl orally. We are also giving youflagyl gel. Complete all of the antibiotic even if your symptoms have resolved. Return for abdominal pain, vomiting, fever of greater than 101F, or any other symptoms that are worrisome to you. Please follow-up with your DISTRICT COURT REPORTER or primary care doctor in the next 1 to 2 weeks for recheck. Prescriptions: Clindamycin HCl 300 mg PO BID #14 capsule Metronidazole [Metrogel 0.75% Vaginal Gel] 5 applic VG DAILY #5 tube
[2020-01-05 21:18] LABS: EPITHELIALS (WET MOUNT) 3+ EPITHELIALS SEEN; RBCS (WET MOUNT) RARE RBCS SEEN; T.VAGINALIS (WET MOUNT) NO TRICHOMONAS SEEN; WBCS (WET MOUNT) 1+ WBCS SEEN; YEAST (WET MOUNT) NO YEAST SEEN
[2020-01-05 22:41] LABS: CHLAM PCR NOT DETECTED (NOT DETECT)
--- NOTE | 2020-01-05 22:54 | RADIOLOGY REPORT (SQ) ---
US PELVIS TRANSVAGINAL HISTORY: 39 years Female lower pelvic pain. COMPARISON: Pelvic ultrasound January 28, 2019 Technique: Endovaginal Imaging of the pelvis was performed. Color and spectral imaging was performed. Uterus: The cervix is closed and measures 2.4 cm in length. The uterus measures 10.1 x 6.1 x 5.2 cm. Endometrium measures 10.6 mm Right Ovary: The ovary measures 3.6 x 1.7 x 1.8 cm contains a small follicle.. Normal color and spectral doppler waveforms Left Ovary: The left ovary measures 3.2 x 2.2 x 2.2 cm and contains small follicles.. Normal color and spectral doppler waveforms Other: No adnexal mass. No free fluid. IMPRESSION: Unremarkable pelvic ultrasound. No acute process.
[2020-01-05] MEDS ORDERED: CLINDAMYCIN HCL 150 MG CAPSULE PO ONE (23:00)
[2020-01-05 23:51] VITALS: BP 125/80
== END 2020-01-05 23:49 | disposition home or self-care (01) ==
LOC: ER 19:14
DX: N76.0 Acute vaginitis (principal); B96.89 Other specified bacterial agents as the cause of diseases classified elsewhere; F17.200 Nicotine dependence, unspecified, uncomplicated
CPT/HCPCS: 99285; 96361; 96374; 36415; 87086; 87210; 83690; 84703; 85025; 80053; 81001; 87491; 87591; 76830; 93976; J1885; J7030